=== PATIENT | female | born 1965 | race Caucasian/White ===

== ENCOUNTER → 2018-12-09 | Outpatient (CLI) | payer OTHER ==
[~2018-12-09] MED LIST: AMOXICILLIN 50500 MG PO; ESTRADIOL 1 MG T1 M1 PO; HYDROXYZINE HCL25 M1 PO; MEDROLDOSEPACK PO; NORCO 5-325 TA1 EACH PO; PAXIL10 MG PO; SENOKOT-S1 TA1 PO; SUMATRIPTAN SU100 MG PO; SYNTHROID25 MCG PO; TEGRETOL XR400 MG PO; TESSALON PERLE100 MG PO; ZONISAMIDE 100100 M1 PO
--- NOTE | ~2018-12-09 | EEG ---
[address] [address] EEG STUDY REPORT Name: GRACIELA UMANA Room: [facility]#: [id number] Admission: 12/09/18 Attend Phys: Senthil Aguilera MD Discharge: Date of : 67 Report #: [id number] THIS REPORT FOR: //name// CC: Etta Aguilera INDICATION: This patient has a history of seizure disorder. We are trying to take her off Tegretol. An EEG was done to look for any active epileptiform activity. FINDINGS: EEG was done by placing the electrodes by standard 10-20 system of electrode placement. Both referential and sequential montages were used for recording. Background activity in this patient's EEG is about 9 Hz and 40 microvolts. The patient went to sleep that is associated with bilateral slowing and vertex sharp waves. Photic stimulation is unremarkable. Throughout the record, no active epileptiform activity was noticed. IMPRESSION: This patient's EEG does not demonstrate any active epileptiform activity. Thank you very much for this referral. By: [id number] Aguilera MD /nt
== END ==
LOC: M.MRI 11-25 13:40 → M.CRD 12:13 → M.MRI 12-10 11:30
DX: R56.9 Unspecified convulsions (principal); R90.82 White matter disease, unspecified; D70.9 Neutropenia, unspecified